=== PATIENT | male | born 1940 | race Two or more races ===

== ENCOUNTER 2019-11-01 07:06 | Emergency (ER) | payer MEDICARE ==
[~2019-11-01] VITALS: Ht 165.1 cm; Wt 74.8 kg
--- NOTE | 2019-11-01 07:12 | NUR ---
PATIENT CAME TO ER BED 9 BIB RA C/O PELVIC PAIN. 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 PT UNABLE TO URINATE SINCE LAST NIGHT. PT TRIED TO PROVIDE URINE, BUT UNABLE TO URINATE. AWAITING MD BENAVIDEZ.
--- NOTE | 2019-11-01 07:20 | NUR ---
SEEN AND EXAMINED BY
[2019-11-01] MEDS ORDERED: LIDOCAINE 2% JEL UROJET 10 ML MM ONE ×2 (07:25→07:30)
--- NOTE | 2019-11-01 07:43 | NUR ---
REPORT GIVEN TO JEANCARLOS LICEA FOR MICHEL.
--- NOTE | 2019-11-01 07:43 | NUR ---
URINE COLLECTED AND SENT TO LAB
[2019-11-01 07:52] LABS: APPEARANCE,URINE Clear (CLEAR); BILIRUBIN,URINE Negative (NEGATIVE); BLOOD, URINE Moderate Ery/uL (NEGATIVE); COLOR,URINE Yellow (YELLOW); KETONES,URINE Negative (NEGATIVE); LEUKOCYTE ESTERASE ,URINE Negative (NEGATIVE); NITRITE, URINE Negative (NEGATIVE); PROTEIN,URINE Negative (NEGATIVE); UGLUCOSE Negative (NEGATIVE)
[2019-11-01 08:00] LABS: BASOPHILS # (AUTO) 0.1 /CMM (0.0-0.2); BASOPHILS % (AUTO) 1.1 % (0.0-2.0); EOSINOPHILS % (AUTO) 0.7 % (0.0-6.0); HEMATOCRIT 42 % (39-51); HEMOGLOBIN 14.3 g/dL (13.5-17.5); LYMPHOCYTES # (AUTO) 0.8 /CMM (0.8-4.8); LYMPHOCYTES % (AUTO) 13.9 % (20.0-44.0); MEAN CORPUSCULAR HGB CONC 34 g/dl (31.0-36.0); MEAN CORPUSCULAR VOLUME 90 fL (80-96); MONOCYTES # (AUTO) 0.5 /CMM (0.1-1.30); MONOCYTES % (AUTO) 9.3 % (2.0-12.0); NEUTROPHILS # (AUTO) 4.2 /CMM (1.8-8.9); PLATELET COUNT (AUTO) 287 /CMM (150-450); WHITE BLOOD COUNT (AUTO) 5.6 K/uL (4.3-11.0)
[2019-11-01 08:02] LABS: BACTERIA,URINE Rare /HPF (None Seen); SQUAMOUS EPITHELIAL CELL,UR Few /HPF (None Seen); WBC,URINE 0-2 /HPF (0-3)
[2019-11-01 08:09] LABS: CALCIUM, SERUM 8.8 mg/dL (8.5-10.1); CREATININE 0.8 mg/dL (0.6-1.3); POTASSIUM 3.8 mmol/L (3.5-5.1)
[2019-11-01 08:15] LABS: ALBUMIN 3.4 g/dL (3.4-5.0); BILIRUBIN,TOTAL 0.8 mg/dL (0.2-1.0); TOTAL PROTEIN, SERUM 6.7 g/dL (6.4-8.2)
--- NOTE | 2019-11-01 08:50 | NUR ---
CALLED SON TO [facility]. ETA 30-45 MINUTES. PHONE NUMBER [phone].
--- NOTE | 2019-11-01 08:59 | NUR ---
CHILDS CATHETER CONNECTED TO LEG BAG. INSTRUCTIONS GIVEN, PATIENT VERBALIZED UNDERSTANDING.
--- NOTE | 2019-11-01 09:07 | NUR ---
Patient discharged to home in stable condition. Written and verbal after care instructions given. Patient verbalizes understanding of instruction.
[2019-11-01 09:17] VITALS: BP 148/95
== END 2019-11-01 09:10 | disposition home or self-care (01) ==
LOC: ER 07:08
DX: K40.90 Unilateral inguinal hernia, without obstruction or gangrene, not specified as recurrent (principal); R33.9 Retention of urine, unspecified; I10 Essential (primary) hypertension
CPT/HCPCS: 36415; 51702; 80053; 81001; 85025; 99284; J3490; 81000-TC